=== PATIENT | male | born 2000 | race African-American/Black ===

== ENCOUNTER 2019-01-18 13:52 | Emergency (ER) | payer SELFPAY ==
[2019-01-18 13:59] VITALS: BP 143/86; PULSE 86; TEMP 98; BMI 41.6
[2019-01-18] MEDS ORDERED: KETOROLAC TROMETHAMINE 60 MG/2 ML VIAL IM ONE (14:51)
[2019-01-18] MEDS ORDERED: KETOROLAC TROMETHAMINE 60 MG/2 ML VIAL ONE (14:57)
--- NOTE | 2019-01-18 15:09 | PDOC ---
History of Present Illness - General Chief Complaint: Hemorrhoids Stated Complaint: Bleeding from Anus Time Seen by Provider: 01/18/19 14:33 History Source: Patient - History of Present Illness Timing/Duration: reports: getting worse Quality: reports: moderate Past History - Past Medical History Allergies/Adverse Reactions: Allergies Allergy/AdvReac Type Severity Reaction Status Date / Time No Known Allergies Allergy Verified 01/18/19 13:59 Home Medications: Ambulatory Orders Docusate Sodium [Colace] 100 mg PO DAILY #30 capsule 01/18/19 Hydrocortisone 2.5% Topical Cr [Anusol 2.5% Hc Cream -] 1 applic RC DAILY #1 tube 01/18/19 Ibuprofen [Motrin -] 600 mg PO QID #28 tablet 01/18/19 COPD: No GI Disorders: Yes (HEMMORRHOIDS) - Suicide/Smoking/Psychosocial Hx Smoking History: Never smoked Hx Alcohol Use: No Drug/Substance Use Hx: No Review of Systems - Review of Systems Constitutional: No: Chills, Fever ABD/GI: Yes: Constipated. No: Blood Streaked Bowels, Rectal Bleeding *Physical Exam - Vital Signs Last Vital Signs Temp Pulse Resp BP Pulse Ox 98.0 F 86 14 143/86 97 01/18/19 13:56 01/18/19 13:56 01/18/19 13:56 01/18/19 13:56 01/18/19 13:56 - Physical Exam General Appearance: Yes: Appropriately Dressed, Moderate Distress HEENT: positive: Normal Voice Neck: positive: Supple Respiratory/Chest: negative: Respiratory Distress Rectal Exam: positive: other (1 large hemorrhoid, no e/o thrombosis) Extremity: positive: Normal Inspection Integumentary: positive: Dry, Warm Neurologic: positive: Fully Oriented, Alert, Normal Mood/Affect ED Treatment Course - Medications Given in the ED: ED Medications Discontinued Medications Generic Name Dose Route Start Last Admin Trade Name Freq PRN Reason Stop Dose Admin Ketorolac Tromethamine 60 mg 01/18/19 14:51 01/18/19 15:00 Toradol Injection - IM 01/18/19 14:52 60 mg ONCE ONE Administration Medical Decision Making - Medical Decision Making 01/18/19 15:03 18-year-old male, no significant history, here with rectal pain and swelling 3 days. Patient reports constipation with having to strain to have a bowel movement recently. No bright blood per rectum. No history of similar episode. see exam Hemorrhoid No e/o thrombosis Dose of toradol here -dc w/ symptomatic relief -GI referral as needed *DC/Admit/Observation/Transfer Diagnosis at time of Disposition: Hemorrhoid Qualifiers: Hemorrhoid type: unspecified Qualified Code(s): K64.9 - Unspecified hemorrhoids - Discharge Dispostion Disposition: HOME Condition at time of disposition: Good - Prescriptions Prescriptions: Docusate Sodium [Colace] 100 mg PO DAILY #30 capsule Hydrocortisone 2.5% Topical Cr [Anusol 2.5% Hc Cream -] 1 applic RC DAILY #1 tube Ibuprofen [Motrin -] 600 mg PO QID #28 tablet - Referrals Referrals: Bautista Cronin MD [Staff Physician] - - Patient Instructions Printed Discharge Instructions: DI for Hemorrhoids Additional Instructions: Take and use medications as directed Also purchase sitz bath in the drug store and uses 3-4 times a day for 20 minute each time as directed If symptoms do not improve with the above measures, please follow-up with Dr. Cronin of GI - Post Discharge Activity Forms/Work/School Notes: Back to Work
== END 2019-01-18 15:19 | disposition home or self-care (01) ==
LOC: JERFT 13:52
PROC: 3E0233Z Introduction of Anti-inflammatory into Muscle, Percutaneous Approach (ICD-10-PCS; principal; 2019-01-18)
DX: K64.9 Unspecified hemorrhoids (principal)
CPT/HCPCS: 99281-25